=== PATIENT | female | born 1965 | race Caucasian/White ===

== ENCOUNTER 2017-09-28 16:20 | Inpatient (IN) | payer OTHER ==
[2017-09-28] MEDS: SOD CHLORIDE 0.9% 1,000 ML IV ×2 (16:52→20:13)
[2017-09-28] MEDS: ONDANSETRON 4 MG INJ IV (16:52)
[2017-09-28] MEDS: morphine 4 MG/ML VIAL IV (16:53)
[2017-09-28 17:00] LABS: ADD MAN DIFF? NO
[2017-09-28 17:02] LABS: BASOPHIL # 0.1 10^3/ul (0.0-0.1); BASOPHILS % 0.4 % (0.0-2.0); EOSINOPHILS % 0.2 % (0.0-7.0); HEMATOCRIT 42.2 % (37.0-47.0); LYMPHOCYTES # 2.7 10^3/ul (0.8-2.9); LYMPHOCYTES % 16.2 % (15.0-51.0); MEAN CORPUSCULAR HEMOGLOBIN 31.6 pg (29.0-33.0); MEAN CORPUSCULAR HGB CONC 35.5 g/dl (32.0-37.0); MEAN CORPUSCULAR VOLUME 88.8 fl (82.0-101.0); MEAN PLATELET VOLUME 12.2 fl (7.4-10.4); MONOCYTE # 0.8 10^3/ul (0.3-0.9); MONOCYTES % 4.9 % (0.0-11.0); PLATELET COUNT 250 10^3/UL (140-415); RED BLOOD COUNT 4.75 10^6/ul (4.20-5.40)
[2017-09-28 17:02] LABS: WHITE BLOOD COUNT 16.6 10^3/ul (4.8-10.8)
[2017-09-28 17:15] LABS: ADD UMIC YES; UR ASCORBIC ACID NEGATIVE (NEGATIVE); UR BILIRUBIN (Dip) NEGATIVE (NEGATIVE); UR BLOOD (Dip) 2+ mg/dL (NEGATIVE); UR CLARITY CLEAR (CLEAR); UR COLOR YELLOW (YELLOW); UR GLUCOSE (Dip) NEGATIVE (NEGATIVE); UR KETONES (Dip) NEGATIVE (NEGATIVE); UR LEUKOCYTE ESTERASE (Dip) NEGATIVE Leu/ul (NEGATIVE); UR NITRITE (Dip) NEGATIVE (NEGATIVE); UR RBC 4 /HPF (0-5); UR SPECIFIC GRAVITY (Dip) 1.011 (1.003-1.030); UR TOTAL PROTEIN (Dip) NEGATIVE (NEGATIVE); UR UROBILINOGEN (Dip) NEGATIVE (NEGATIVE); UR WBC 0 /HPF (0-5)
[2017-09-28 17:32] LABS: ALANINE AMINOTRANSFERASE 51 IU/L (13-69); ALBUMIN 4.9 g/dl (3.3-4.9); ALBUMIN/GLOBULIN RATIO 1.13; ALKALINE PHOSPHATASE 105 IU/L (42-121); ANION GAP 19 (8-16); ASPARTATE AMINO TRANSFERASE 36 IU/L (15-46); BILIRUBIN,INDIRECT 0.5 mg/dl (0-1.1); BILIRUBIN,TOTAL 0.5 mg/dl (0.2-1.3); BLOOD UREA NITROGEN 11 mg/dl (7-20); CALCIUM 9.6 mg/dl (8.4-10.2); CARBON DIOXIDE 27 mmol/L (21-31); CHLORIDE 101 mmol/L (97-110); GLUCOSE 128 mg/dl (70-220); LIPASE 55 U/L (23-300); POTASSIUM 3.2 mmol/L (3.5-5.1); SODIUM 144 mmol/L (135-144); TOTAL PROTEIN 9.2 g/dl (6.1-8.1)
[2017-09-28 17:42] LABS: TROPONIN-I < 0.012 ng/ml (0.00-0.12)
[2017-09-28] MEDS: HYDROmorphONE 1 MG/5 ML IV SYRINGE IV (17:42)
[2017-09-28] MEDS: POTASSIUM CHLORIDE (SR) 20 MEQ TAB PO (18:11)
[2017-09-28] MEDS: metroNIDAZOLE 500 MG/NS (PMX) 100 ML IVPB (18:43)
[2017-09-28] MEDS: CIPROFLOXACIN 400MG/D5W 200 ML IVPB (18:44)
[2017-09-28] MEDS ORDERED: ONDANSETRON 4 MG TAB PO (19:00)
[2017-09-28] MEDS ORDERED: ACETAMINOPHEN 325 MG TAB PO (19:00)
[2017-09-28] MEDS ORDERED: MAGNESIUM HYDROXIDE 30ML CUP PO (19:00)
[2017-09-28] MEDS ORDERED: metroNIDAZOLE 500 MG/NS (PMX) 100 ML IVPB (19:00)
[2017-09-28] MEDS ORDERED: NACL 0.9% 3 ML SYG IV (19:00)
[2017-09-28] MEDS ORDERED: ONDANSETRON 4 MG INJ IV (19:00)
[2017-09-28] MEDS: ATORVASTATIN 10 MG TAB PO (21:55)
[2017-09-29] MEDS: ACETAMINOPHEN 325 MG TAB PO (00:29)
[2017-09-29] MEDS: SOD CHLORIDE 0.9% 1,000 ML IV ×4 (04:44→21:01)
[2017-09-29] MEDS: metroNIDAZOLE 500 MG/NS (PMX) 100 ML IVPB ×3 (06:00→21:00)
[2017-09-29] MEDS: PANTOPRAZOLE (EC) 40 MG TAB PO ×2 (06:00→17:18)
[2017-09-29 06:24] LABS: ADD MAN DIFF? NO
[2017-09-29 06:28] LABS: BASOPHILS % 0.4 % (0.0-2.0); EOSINOPHILS # 0.1 10^3/ul (0.0-0.5); EOSINOPHILS % 0.5 % (0.0-7.0); HEMATOCRIT 37.7 % (37.0-47.0); HEMOGLOBIN 12.9 g/dl (12.0-16.0); LYMPHOCYTES # 2.4 10^3/ul (0.8-2.9); LYMPHOCYTES % 25.3 % (15.0-51.0); MEAN CORPUSCULAR HEMOGLOBIN 30.9 pg (29.0-33.0); MEAN CORPUSCULAR HGB CONC 34.2 g/dl (32.0-37.0); MEAN CORPUSCULAR VOLUME 90.4 fl (82.0-101.0); MEAN PLATELET VOLUME 12.3 fl (7.4-10.4); MONOCYTE # 0.9 10^3/ul (0.3-0.9); MONOCYTES % 9.6 % (0.0-11.0); NEUTROPHIL # 6.2 10^3/ul (1.6-7.5); NEUTROPHILS % 63.9 % (39.0-77.0); PLATELET COUNT 217 10^3/UL (140-415); RED BLOOD COUNT 4.17 10^6/ul (4.20-5.40); RED CELL DISTRIBUTION WIDTH 13.4 % (11.5-14.5)
[2017-09-29 06:28] LABS: WHITE BLOOD COUNT 9.7 10^3/ul (4.8-10.8)
[2017-09-29 06:46] LABS: ANION GAP 17 (8-16); BLOOD UREA NITROGEN 9 mg/dl (7-20); CALCIUM 9.2 mg/dl (8.4-10.2); CARBON DIOXIDE 28 mmol/L (21-31); CHLORIDE 107 mmol/L (97-110); CREATININE 0.63 mg/dl (0.44-1.00); GLUCOSE 96 mg/dl (70-220); MAGNESIUM 2.1 mg/dl (1.7-2.5); PHOSPHORUS 4.1 mg/dl (2.5-4.9); SODIUM 148 mmol/L (135-144)
[2017-09-29] MEDS: CIPROFLOXACIN 400MG/D5W 200 ML IVPB ×2 (06:46→17:18)
[2017-09-29 06:59] LABS: INR 1.14; PROTIME 14.8 Sec (11.9-14.9); PT RATIO 1.2
[2017-09-29 07:00] LABS: PARTIAL THROMBOPLASTIN TIME 35.1 Sec (25.0-35.0)
[2017-09-29] MEDS ORDERED: EPHEDrine SULFATE 50 MG/5 ML SYG (07:00)
[2017-09-29] MEDS ORDERED: MIDAZOLAM 1 MG/ML 2 ML INJ (07:46)
[2017-09-29] MEDS ORDERED: ROCURONIUM 50 MG INJ (07:52)
[2017-09-29] MEDS ORDERED: SUCCINYLCHOLINE CHLORIDE 100 MG/5 ML SYG IV (07:52)
[2017-09-29] MEDS ORDERED: PROPOFOL 20 ML (07:52)
[2017-09-29] MEDS ORDERED: LIDOCAINE 2% (SDV) 5 ML INJ (07:52)
[2017-09-29] MEDS ORDERED: FENTAnyl 50 MCG/ML VIAL (07:52)
[2017-09-29] MEDS ORDERED: DEXAMETHASONE 4 MG/ML 1 ML INJ (08:03)
[2017-09-29] MEDS ORDERED: ONDANSETRON 4 MG INJ (08:03)
[2017-09-29] MEDS ORDERED: FAMOTIDINE 20 MG INJ (08:03)
[2017-09-29] MEDS: BUPIVACAINE 0.25%/EPI (SDV) 30 ML INJ (08:20)
[2017-09-29] MEDS ORDERED: SUGAMMADEX SODIUM 200 MG/2 ML VIAL IV ×2 (08:22→08:44)
[2017-09-29] MEDS ORDERED: KETOROLAC 30 MG INJ (08:30)
[2017-09-29] MEDS ORDERED: HYDROmorphONE (0.2 MG/ML) 10ML SYG IV ×3 (08:30)
[2017-09-29] MEDS ORDERED: ONDANSETRON 4 MG INJ IV ×2 (08:30→09:00)
[2017-09-29] MEDS ORDERED: PROCHLORPERAZINE 10 MG INJ IV (08:30)
[2017-09-29] MEDS ORDERED: MEPERIDINE 25 MG INJ IV (08:30)
[2017-09-29] MEDS ORDERED: hydrALAzine 20 MG INJ IV (08:30)
[2017-09-29] MEDS ORDERED: DIPHENHYDRAMINE 50 MG INJ IV (08:30)
[2017-09-29] MEDS ORDERED: FENTAnyl 50 MCG/ML VIAL IV ×3 (08:30)
[2017-09-29] MEDS ORDERED: ROPIVACAINE 0.5 % 30 ML VIAL (08:31)
[2017-09-29] MEDS ORDERED: ENOXAPARIN 40 MG/0.4 ML SYG SC (09:00)
[2017-09-29] MEDS ORDERED: OXYCODONE/ACETAMINOPHEN (5/325) TAB PO ×2 (09:00)
[2017-09-29] MEDS ORDERED: morphine 2 MG INJ IV (09:00)
[2017-09-29] MEDS: morphine 2 MG INJ IV (09:42)
[2017-09-29] MEDS: AMLODIPINE 5 MG TAB PO (13:41)
[2017-09-29] MEDS: HYDROCODONE/APAP (5/325) TAB PO (17:33)
[2017-09-29] MEDS: ONDANSETRON 4 MG INJ IV (18:51)
[2017-09-29] MEDS: ATORVASTATIN 10 MG TAB PO (21:00)
[2017-09-30] MEDS: SOD CHLORIDE 0.9% 1,000 ML IV ×2 (00:44→09:19)
[2017-09-30] MEDS: PANTOPRAZOLE (EC) 40 MG TAB PO (05:27)
[2017-09-30] MEDS: metroNIDAZOLE 500 MG/NS (PMX) 100 ML IVPB (05:27)
[2017-09-30 06:22] LABS: ADD MAN DIFF? NO
[2017-09-30 06:27] LABS: BASOPHILS % 0.3 % (0.0-2.0); HEMATOCRIT 38.3 % (37.0-47.0); HEMOGLOBIN 13.1 g/dl (12.0-16.0); LYMPHOCYTES # 2.4 10^3/ul (0.8-2.9); MEAN CORPUSCULAR HEMOGLOBIN 30.9 pg (29.0-33.0); MEAN CORPUSCULAR HGB CONC 34.2 g/dl (32.0-37.0); MEAN CORPUSCULAR VOLUME 90.3 fl (82.0-101.0); MEAN PLATELET VOLUME 12.4 fl (7.4-10.4); MONOCYTES % 7.4 % (0.0-11.0); NEUTROPHIL # 10.1 10^3/ul (1.6-7.5); NEUTROPHILS % 73.9 % (39.0-77.0); PLATELET COUNT 227 10^3/UL (140-415); RED BLOOD COUNT 4.24 10^6/ul (4.20-5.40); RED CELL DISTRIBUTION WIDTH 13.1 % (11.5-14.5)
[2017-09-30 06:27] LABS: WHITE BLOOD COUNT 13.6 10^3/ul (4.8-10.8)
[2017-09-30] MEDS: CIPROFLOXACIN 400MG/D5W 200 ML IVPB (06:41)
[2017-09-30] MEDS: ACETAMINOPHEN 325 MG TAB PO (06:46)
[2017-09-30 06:55] LABS: ANION GAP 16 (8-16); BLOOD UREA NITROGEN 11 mg/dl (7-20); CALCIUM 9.2 mg/dl (8.4-10.2); CARBON DIOXIDE 24 mmol/L (21-31); CHLORIDE 109 mmol/L (97-110); CREATININE 0.63 mg/dl (0.44-1.00); GLUCOSE 117 mg/dl (70-220); MAGNESIUM 1.8 mg/dl (1.7-2.5); PHOSPHORUS 4.1 mg/dl (2.5-4.9); POTASSIUM 3.1 mmol/L (3.5-5.1); SODIUM 146 mmol/L (135-144)
[2017-09-30] MEDS: AMLODIPINE 5 MG TAB PO (09:18)
[2017-09-30] MEDS: DOCUSATE SODIUM 100 MG CAP PO (09:18)
[2017-09-30] MEDS: BISACODYL (EC) 5 MG TAB PO (09:19)
[2017-09-30] MEDS: POTASSIUM CHLORIDE (SR) 20 MEQ TAB PO (11:10)
== END 2017-09-30 14:45 | disposition home or self-care (01) | DRG 343 ==
LOC: E/R 16:20 → MS2 18:38
PROC: 0DTJ4ZZ Resection of Appendix, Percutaneous Endoscopic Approach (ICD-10-PCS; principal; 2017-09-29 07:15)
DX: K35.80 Unspecified acute appendicitis (principal); E78.5 Hyperlipidemia, unspecified; I10 Essential (primary) hypertension; Z90.710 Acquired absence of both cervix and uterus
CPT/HCPCS: 36415; 74176; 80048; 80053; 81001; 83690; 83735; 84100; 84484; 85025; 85610; 85730; 88304; 93005; 96361; 96365; 96368; 96375; 99285-25

== ENCOUNTER 2017-11-26 20:27 | Emergency (ER) | payer OTHER ==
[2017-11-26 23:21] LABS: ADD MAN DIFF? NO
[2017-11-26 23:25] LABS: BASOPHIL # 0.1 10^3/ul (0.0-0.1); BASOPHILS % 0.8 % (0.0-2.0); EOSINOPHILS # 0.2 10^3/ul (0.0-0.5); EOSINOPHILS % 1.6 % (0.0-7.0); HEMATOCRIT 42.1 % (37.0-47.0); HEMOGLOBIN 14.6 g/dl (12.0-16.0); LYMPHOCYTES # 3.3 10^3/ul (0.8-2.9); MEAN CORPUSCULAR HEMOGLOBIN 30.7 pg (29.0-33.0); MEAN CORPUSCULAR HGB CONC 34.7 g/dl (32.0-37.0); MEAN CORPUSCULAR VOLUME 88.6 fl (82.0-101.0); MONOCYTE # 0.7 10^3/ul (0.3-0.9); MONOCYTES % 6.7 % (0.0-11.0); NEUTROPHIL # 5.5 10^3/ul (1.6-7.5); NEUTROPHILS % 56.6 % (39.0-77.0); PLATELET COUNT 255 10^3/UL (140-415); RED BLOOD COUNT 4.75 10^6/ul (4.20-5.40); RED CELL DISTRIBUTION WIDTH 12.3 % (11.5-14.5)
[2017-11-26 23:25] LABS: WHITE BLOOD COUNT 9.8 10^3/ul (4.8-10.8)
[2017-11-26] MEDS: LORAZEPAM 1 MG TAB PO (23:25)
[2017-11-26] MEDS: KETOROLAC 30 MG INJ IM (23:25)
[2017-11-26 23:33] LABS: ADD UMIC YES; UR AMORPHOUS CRYSTAL FEW /HPF (NONE SEEN); UR ASCORBIC ACID NEGATIVE (NEGATIVE); UR BACTERIA FEW /HPF (NONE SEEN); UR BILIRUBIN (Dip) NEGATIVE (NEGATIVE); UR BLOOD (Dip) NEGATIVE (NEGATIVE); UR CLARITY CLOUDY (CLEAR); UR COLOR YELLOW (YELLOW); UR GLUCOSE (Dip) NEGATIVE (NEGATIVE); UR KETONES (Dip) NEGATIVE (NEGATIVE); UR LEUKOCYTE ESTERASE (Dip) NEGATIVE Leu/ul (NEGATIVE); UR NITRITE (Dip) NEGATIVE (NEGATIVE); UR RBC 1 /HPF (0-5); UR SPECIFIC GRAVITY (Dip) 1.014 (1.003-1.030); UR TOTAL PROTEIN (Dip) NEGATIVE (NEGATIVE); UR UROBILINOGEN (Dip) NEGATIVE (NEGATIVE); UR WBC 1 /HPF (0-5)
[2017-11-26 23:46] LABS: ALANINE AMINOTRANSFERASE 28 IU/L (13-69); ALBUMIN 4.5 g/dl (3.3-4.9); ALBUMIN/GLOBULIN RATIO 1.18; ALKALINE PHOSPHATASE 98 IU/L (42-121); ANION GAP 13 (8-16); ASPARTATE AMINO TRANSFERASE 20 IU/L (15-46); BILIRUBIN,INDIRECT 0.3 mg/dl (0-1.1); BILIRUBIN,TOTAL 0.3 mg/dl (0.2-1.3); BLOOD UREA NITROGEN 17 mg/dl (7-20); CALCIUM 9.7 mg/dl (8.4-10.2); CARBON DIOXIDE 30 mmol/L (21-31); CHLORIDE 103 mmol/L (97-110); GLUCOSE 121 mg/dl (70-220); SODIUM 142 mmol/L (135-144); TOTAL PROTEIN 8.3 g/dl (6.1-8.1)
[2017-11-26 23:52] LABS: INR 0.93; PROTIME 12.6 Sec (11.9-14.9)
[2017-11-26 23:53] LABS: PARTIAL THROMBOPLASTIN TIME 29.5 Sec (25.0-35.0)
[2017-11-26 23:55] LABS: D-DIMER 597.56 ng/ml (<460)
[2017-11-26 23:57] LABS: B-TYPE NATRIURETIC PEPTIDE 200 PG/ML (0-125)
[2017-11-26 23:59] LABS: TROPONIN-I < 0.012 ng/ml (0.000-0.120)
[2017-11-27] MEDS ORDERED: SOD CHLORIDE 0.9% 100 ML (00:51)
[2017-11-27] MEDS ORDERED: IOHEXOL 300MG/ML 150 ML BTL (00:52)
== END 2017-11-27 02:30 | disposition home or self-care (01) ==
LOC: FTE 11-27 02:30
DX: M62.830 Muscle spasm of back (principal); I10 Essential (primary) hypertension; R07.9 Chest pain, unspecified
CPT/HCPCS: 36415; 71045; 71275; 80053; 81001; 81025; 83880; 84484; 85025; 85378; 85610; 85730; 93005; 96372; 99285-25

== ENCOUNTER 2018-06-19 19:24 | Emergency (ER) | payer OTHER ==
[2018-06-19] MEDS: KETOROLAC 60 MG INJ IM (23:18)
== END 2018-06-19 23:21 | disposition home or self-care (01) ==
LOC: E/R 19:24
DX: M25.512 Pain in left shoulder (principal); I10 Essential (primary) hypertension
CPT/HCPCS: 96372; 99284-25

== ENCOUNTER 2018-06-28 08:59 | Emergency (ER) | payer OTHER ==
[2018-06-28] MEDS: ASPIRIN 325 MG TAB PO (10:02)
[2018-06-28 10:10] LABS: ADD MAN DIFF? NO
[2018-06-28 10:13] LABS: BASOPHIL # 0.1 10^3/ul (0.0-0.1); BASOPHILS % 0.5 % (0.0-2.0); EOSINOPHILS # 0.2 10^3/ul (0.0-0.5); EOSINOPHILS % 2.2 % (0.0-7.0); HEMATOCRIT 41.1 % (37.0-47.0); HEMOGLOBIN 13.9 g/dl (12.0-16.0); LYMPHOCYTES # 3.6 10^3/ul (0.8-2.9); LYMPHOCYTES % 34.9 % (15.0-51.0); MEAN CORPUSCULAR HEMOGLOBIN 29.8 pg (29.0-33.0); MEAN CORPUSCULAR HGB CONC 33.8 g/dl (32.0-37.0); MEAN CORPUSCULAR VOLUME 88.2 fl (82.0-101.0); MEAN PLATELET VOLUME 12.2 fl (7.4-10.4); MONOCYTE # 0.6 10^3/ul (0.3-0.9); MONOCYTES % 6.2 % (0.0-11.0); NEUTROPHIL # 5.7 10^3/ul (1.6-7.5); NEUTROPHILS % 55.8 % (39.0-77.0); PLATELET COUNT 280 10^3/UL (140-415); RED BLOOD COUNT 4.66 10^6/ul (4.20-5.40)
[2018-06-28 10:13] LABS: WHITE BLOOD COUNT 10.3 10^3/ul (4.8-10.8)
[2018-06-28 10:33] LABS: INR 0.97
[2018-06-28 10:34] LABS: PARTIAL THROMBOPLASTIN TIME 32.9 Sec (23.0-35.0)
[2018-06-28 10:56] LABS: ALANINE AMINOTRANSFERASE 9 IU/L (13-69); ALBUMIN 4.4 g/dl (3.3-4.9); ALBUMIN/GLOBULIN RATIO 1.02; ALKALINE PHOSPHATASE 125 IU/L (42-121); ANION GAP 13 (5-13); ASPARTATE AMINO TRANSFERASE 21 IU/L (15-46); BILIRUBIN,INDIRECT 0.2 mg/dl (0-1.1); BILIRUBIN,TOTAL 0.2 mg/dl (0.2-1.3); BLOOD UREA NITROGEN 12 mg/dl (7-20); CALCIUM 9.8 mg/dl (8.4-10.2); CARBON DIOXIDE 25 mmol/L (21-31); CHLORIDE 105 mmol/L (97-110); CREATINE KINASE 44 IU/L (23-200); CREATININE 0.61 mg/dl (0.44-1.00); Estimated GFR > 60 mL/min (>60); GLUCOSE 114 mg/dl (70-220); POTASSIUM 3.3 mmol/L (3.5-5.1); SODIUM 143 mmol/L (135-144); TOTAL PROTEIN 8.7 g/dl (6.1-8.1)
[2018-06-28 11:08] LABS: CK INDEX 0.5; CK-MB < 0.22 ng/ml (0.0-2.4); TROPONIN-I < 0.012 ng/ml (0.000-0.120)
[2018-06-28 11:40] LABS: D-DIMER 1892.87 ng/ml (<460)
[2018-06-28] MEDS: SOD CHLORIDE 0.9% 1,000 ML IV (12:10)
[2018-06-28] MEDS: SOD CHLORIDE 0.9% 100 ML (12:45)
[2018-06-28] MEDS: IOHEXOL 100 ML (12:45)
[2018-06-28] MEDS: AZITHROMYCIN 250 MG TAB PO (15:30)
[2018-06-28 15:39] LABS: CREATINE KINASE 42 IU/L (23-200)
[2018-06-28 15:51] LABS: CK INDEX 0.5; CK-MB < 0.22 ng/ml (0.0-2.4); TROPONIN-I < 0.012 ng/ml (0.000-0.120)
[2018-07-01 18:01] LABS: NIL 0.02 IU/mL; QUANTIFERON(R)-TB GOLD NEGATIVE (NEGATIVE)
== END 2018-06-28 15:32 | disposition home or self-care (01) ==
LOC: E/R 08:59
DX: J90 Pleural effusion, not elsewhere classified (principal); I10 Essential (primary) hypertension
CPT/HCPCS: 36415; 71045; 71275; 80053; 82550; 82553; 84484; 85025; 85378; 85610; 85730; 86480; 93005; 99285-25